=== PATIENT | male | born 1960 | race Caucasian/White ===

== ENCOUNTER 2022-09-22 12:37 | Observation (INO) | payer BC ==
[2022-09-22 14:11] LABS: #Eosinphils 0.5 thou/uL (0.0-0.7); #Lymphocytes 1.1 thou/uL (1.20-3.40); #Monocytes 0.8 thou/uL (0.11-0.59); #Neutrophils 5.2 thou/uL (1.40-6.50); %Basophils 0.5 % (0.0-1.0); %Monocytes 10.2 % (0.0-10.0); %Neutrophils 69.4 % (42.0-75.0); Hemoglobin 17.4 g/dL (14.0-18.0); Mean Corpuscular HGB CONC 33.9 g/dL (32.0-36.0); Mean Corpuscular Hemoglobin 32.5 pg (27.0-31.0); Mean Platelet Volume 8.1 fL (7.4-10.4); Platelet Count 189 10x3/uL (130-400); RBC Distribution Width 12.5 % (11.5-14.5); Red Blood Cell (RBC) Count 5.34 mill/uL (4.70-6.10); White Blood Cell (WBC) Count 7.5 10x3/uL (4.8-10.8)
[2022-09-22 14:27] LABS: ALT (SGPT) 13 U/L (8-55); AST (SGOT) 20 U/L (5-34); Albumin 4.2 g/dL (3.5-5.0); Alkaline Phosphatase 61 U/L (40-110); Anion Gap 13 mmol/L (10-20); BUN (Urea Nitrogen) 18 mg/dL (8.4-25.7); Bilirubin, Total 2.5 mg/dL (0.2-1.2); Calc. Creatinine Clearance 0 mL/min (70-130); Calcium 9.1 mg/dL (7.8-10.44); Carbon Dioxide 22 mmol/L (22-29); Chloride 106 mmol/L (98-107); Estimated GFR 57; Globulin 2.8 g/dL (2.4-3.5); Glucose 97 mg/dL (70-105); Potassium 4.3 mmol/L (3.5-5.1); Sodium 137 mmol/L (136-145)
[2022-09-22] MEDS ORDERED: Ondansetron ODT 4 MG TAB ONE (15:01)
[2022-09-22 15:35] LABS: Bilirubin Negative (Negative); Blood, Urine Negative (Negative); Clarity Clear (Clear); Glucose, Urine (Dipstick) Normal (Negative); Ketone, Urine Negative (Negative); Leukocyte Negative Leu/uL (Negative); Nitrite Negative (Negative); Protein, Urine (Dipstick) 20 mg/dL (Neg-Trace); Specific Gravity, Urine 1.025 (1.002-1.036); Urobilinogen Normal mg/dL (Less than 2)
[2022-09-22] MEDS ORDERED: Ondansetron ODT 4 MG TAB PO PRN (18:40)
[2022-09-22] MEDS ORDERED: Morphine 4 MG/ML VIAL SLOW IVP PRN ×2 (18:43→19:28)
[2022-09-22] MEDS ORDERED: Ketorolac Tromethamine 30 MG/ML VIAL IVP PRN (18:43)
[2022-09-22] MEDS ORDERED: Zolpidem Tartrate 5 MG TAB PO PRN (18:44)
[2022-09-22] MEDS ORDERED: Ketorolac Tromethamine 30 MG/ML VIAL ONE (18:46)
[2022-09-22] MEDS ORDERED: HYDROcodone/Acetaminophen 10/325 mg Tablet PO PRN (19:26)
[2022-09-22] MEDS ORDERED: hydrALAZINE 20 MG/ML VIAL SLOW IVP PRN (19:26)
[2022-09-22] MEDS ORDERED: Ondansetron ORAL SOLN. 4 MG/5 ML UDCUP PO PRN (20:00)
[2022-09-22] MEDS ORDERED: cefTRIAXone\\ROCEPHIN 2 GM in Sodium Chloride 0.9% 100 ML IVPB SCH (20:00)
[2022-09-22] MEDS ORDERED: Ondansetron PF 4 MG/2 ML Vial IVP PRN (20:00)
[2022-09-22 20:07] LABS: PTT 29.7 sec (22.9-36.1); Prothrombin Time 13.4 sec (12.0-14.7)
[2022-09-22] MEDS ORDERED: cefTRIAXone (ROCEPHIN) 2 GM VIAL ONE (20:25)
[2022-09-22] MEDS ORDERED: Ondansetron PF 4 MG/2 ML Vial ONE (20:26)
[2022-09-22] MEDS: Sodium Chloride 0.9% 1,000 ML IV SCH (20:36)
[2022-09-22] MEDS ORDERED: Atorvastatin Calcium 10 MG TAB PO SCH (21:00)
[2022-09-22] MEDS ORDERED: HYDROcodone/Acetaminophen 10/325 mg Tablet ONE (23:32)
[2022-09-22] MEDS: HYDROcodone/Acetaminophen 10/325 mg Tablet PO PRN (23:34)
[2022-09-23] MEDS ORDERED: HYDROcodone/Acetaminophen 10/325 mg Tablet ONE (03:45)
[2022-09-23] MEDS: HYDROcodone/Acetaminophen 10/325 mg Tablet PO PRN (03:50)
[2022-09-23 03:57] VITALS: TEMP 97.8
[2022-09-23] MEDS: Sodium Chloride 0.9% 1,000 ML IV SCH (04:40)
[2022-09-23 07:30] VITALS: BP 113/75
[2022-09-23] MEDS ORDERED: cefTRIAXone (ROCEPHIN) 2 GM VIAL ONE (08:20)
[2022-09-23] MEDS ORDERED: Sodium Chloride 0.9% 100 ML ONE (08:20)
[2022-09-23] MEDS ORDERED: Amlodipine 10 MG TAB PO SCH (09:00)
[2022-09-23] MEDS ORDERED: Tamsulosin HCl 0.4 MG CAP PO SCH (09:00)
[2022-09-23] MEDS ORDERED: fentaNYL 50 mcg/mL 1 mL Vial ONE (09:56)
[2022-09-23] MEDS ORDERED: Iopamidol 45 ML ONE (10:02)
[2022-09-23] MEDS ORDERED: ePHEDrine Sulfate 50 MG/10 ML VIAL ONE (10:18)
[2022-09-23] MEDS ORDERED: Ondansetron PF 4 MG/2 ML Vial ONE (10:18)
[2022-09-23] MEDS ORDERED: Dexamethasone 20 MG/5 ML VIAL ONE (10:18)
== END 2022-09-22 23:00 | disposition home or self-care (01) ==
LOC: SUATTDRO 12:37 → ERS 12:37 → ERHOLD 18:38 → 2NO 09-23 13:20 → ERHOLD 09-23 13:20
PROVIDERS: ADMIT Internal Medicine; ATTEND Internal Medicine
PROC: 0T778DZ Dilation of Left Ureter with Intraluminal Device, Via Natural or Artificial Opening Endoscopic (ICD-10-PCS; principal; 2022-09-22)
DX: N13.2 Hydronephrosis with renal and ureteral calculous obstruction (principal); R19.04 Left lower quadrant abdominal swelling, mass and lump; N40.0 Benign prostatic hyperplasia without lower urinary tract symptoms; N35.912 Unspecified bulbous urethral stricture, male; N17.9 Acute kidney failure, unspecified; I10 Essential (primary) hypertension; K57.30 Diverticulosis of large intestine without perforation or abscess without bleeding; Z79.899 Other long term (current) drug therapy
CPT/HCPCS: 36415; 74176; 74420; 80053; 81003; 85025; 85610; 85730; 96374; C2617; J0696; J1885; J2405; J3490; J7050; Q0162

== ENCOUNTER 2022-09-28 11:15 | Outpatient (CLI) | payer BC ==
[2022-09-28 13:05] LABS: Hemoglobin 16.8 g/dL (13.5-17.5); Mean Corpuscular HGB CONC 35.3 g/dL (32.0-36.0); Mean Corpuscular Hemoglobin 31.6 pg (27.0-33.0); Mean Corpuscular Volume 89.6 fl (81.2-95.1); Mean Platelet Volume 9.9 fl (7.4-10.4); Platelet Count 239 10x3/uL (150-450); RBC Distribution Width 12.9 % (11.5-14.5); Red Blood Cell (RBC) Count 5.31 10x6/uL (4.32-5.72); White Blood Cell (WBC) Count 6.4 10x3/uL (3.5-10.5)
[2022-09-28 13:42] LABS: Anion Gap 17 mmol/L (10-20); BUN (Urea Nitrogen) 16 mg/dL (8.4-25.7); Calc. Creatinine Clearance 0 mL/min (70-130); Calcium 9.5 mg/dL (7.8-10.44); Carbon Dioxide 24 mmol/L (22-29); Chloride 102 mmol/L (98-107); Estimated GFR 57; Glucose 90 mg/dL (70-105); Potassium 4.6 mmol/L (3.5-5.1); Sodium 138 mmol/L (136-145)
[2022-09-28 13:43] LABS: PTT 28.3 sec (22.0-33.0); Prothrombin Time 11.2 sec (9.5-12.1)
== END 2022-09-28 11:16 | disposition home or self-care (01) ==
LOC: LABBT 11:15
PROVIDERS: ATTEND Urology
DX: Z01.812 Encounter for preprocedural laboratory examination (principal); N20.1 Calculus of ureter; N20.0 Calculus of kidney
CPT/HCPCS: 80048; 85027; 85610; 85730; 93005; 93010

== ENCOUNTER 2022-10-05 05:44 | Day surgery (SDC) | payer BC ==
[2022-09-28 12:11] VITALS: BMI 33.3
[2022-10-05] MEDS ORDERED: Sodium Chloride 0.9% 100 ML ONE (06:58)
[2022-10-05] MEDS ORDERED: cefTRIAXone (ROCEPHIN) 2 GM VIAL ONE (06:58)
[2022-10-05] MEDS ORDERED: fentaNYL PF 100 MCG/2 ML SYRINGE ONE (07:07)
[2022-10-05] MEDS ORDERED: Iopamidol 15 ML ONE (07:20)
[2022-10-05] MEDS ORDERED: Rocuronium Bromide 10 MG/ML (10ML VIAL) ONE (07:41)
[2022-10-05] MEDS ORDERED: Lidocaine 1% PF 5 ML VIAL ONE (07:41)
[2022-10-05] MEDS ORDERED: Glycopyrrolate 0.2 MG/ML 5 ML SYRINGE ONE (07:41)
[2022-10-05] MEDS ORDERED: NEOSTIGMINE 3 MG/3 ML SYR 3 MG/3 ML SYRINGE ONE (07:41)
[2022-10-05] MEDS ORDERED: PROPOFOL 200 MG/20 ML VIAL ONE (07:41)
[2022-10-05] MEDS ORDERED: ePHEDrine Sulfate 50 MG/10 ML VIAL ONE (07:41)
[2022-10-05] MEDS ORDERED: Ondansetron PF 4 MG/2 ML Vial ONE (07:41)
[2022-10-05] MEDS ORDERED: Dexamethasone 20 MG/5 ML VIAL ONE (07:41)
[2022-10-05] MEDS ORDERED: Phenazopyridine HCl 100 MG TAB ONE (09:42)
[2022-10-05] MEDS ORDERED: Oxybutynin 5 MG TAB ONE (09:43)
[2022-10-05] MEDS ORDERED: Tamsulosin HCl 0.4 MG CAP ONE (09:45)
== END 2022-10-05 15:35 | disposition home or self-care (01) ==
LOC: SDC 05:44
PROVIDERS: ATTEND Urology
PROC: 0TC48ZZ Extirpation of Matter from Left Kidney Pelvis, Via Natural or Artificial Opening Endoscopic (ICD-10-PCS; principal; 2022-10-05)
PROC: 0T778DZ Dilation of Left Ureter with Intraluminal Device, Via Natural or Artificial Opening Endoscopic (ICD-10-PCS; principal; 2022-10-05)
DX: N20.0 Calculus of kidney (principal); N28.1 Cyst of kidney, acquired; N40.1 Benign prostatic hyperplasia with lower urinary tract symptoms; R35.0 Frequency of micturition; N52.9 Male erectile dysfunction, unspecified; I10 Essential (primary) hypertension; E78.5 Hyperlipidemia, unspecified; Z79.899 Other long term (current) drug therapy
CPT/HCPCS: 74018; 74420; 82365; 88300; C1747; C1769; C2617; J0696; J1100; J2405; J2704; J3490; Q9967

== ENCOUNTER 2022-10-14 10:08 | Outpatient (CLI) | payer BC | END 2022-10-14 10:09 | disposition home or self-care (01) | LOC: RAD 10:08 | PROVIDERS: ATTEND Family Medicine | DX: N20.0 Calculus of kidney (principal); Z96.0 Presence of urogenital implants | CPT/HCPCS: 74018 ==

== ENCOUNTER 2022-10-15 09:16 | Outpatient (CLI) | payer BC ==
[2022-10-15 10:42] LABS: Hemoglobin 15.8 g/dL (13.5-17.5); Mean Corpuscular HGB CONC 34.3 g/dL (32.0-36.0); Mean Corpuscular Hemoglobin 31.3 pg (27.0-33.0); Mean Corpuscular Volume 91.3 fl (81.2-95.1); Platelet Count 241 10x3/uL (150-450); RBC Distribution Width 12.8 % (11.5-14.5); Red Blood Cell (RBC) Count 5.04 10x6/uL (4.32-5.72)
[2022-10-15 11:02] LABS: Anion Gap 14 mmol/L (10-20); BUN (Urea Nitrogen) 18 mg/dL (8.4-25.7); Calc. Creatinine Clearance 0 mL/min (70-130); Calcium 8.9 mg/dL (7.8-10.44); Carbon Dioxide 22 mmol/L (22-29); Chloride 107 mmol/L (98-107); Estimated GFR 52; Glucose 105 mg/dL (70-105); Potassium 4.4 mmol/L (3.5-5.1); Sodium 139 mmol/L (136-145)
[2022-10-15 11:08] LABS: PTT 30.5 sec (22.0-33.0); Prothrombin Time 10.4 sec (9.5-12.1)
== END 2022-10-15 09:17 | disposition home or self-care (01) ==
LOC: LABBT 09:16
PROVIDERS: ATTEND Urology
DX: Z01.818 Encounter for other preprocedural examination (principal); Z12.5 Encounter for screening for malignant neoplasm of prostate; N20.2 Calculus of kidney with calculus of ureter; N40.1 Benign prostatic hyperplasia with lower urinary tract symptoms; N28.1 Cyst of kidney, acquired; N52.9 Male erectile dysfunction, unspecified; I10 Essential (primary) hypertension; R35.0 Frequency of micturition; R33.8 Other retention of urine
CPT/HCPCS: 80048; 85027; 85610; 85730; 93005; 93010

== ENCOUNTER 2022-10-21 06:02 | Day surgery (SDC) | payer BC ==
[2022-10-15 10:12] VITALS: BMI 32.3
[2022-10-21] MEDS ORDERED: Iopamidol 30 ML ONE (06:46)
[2022-10-21] MEDS ORDERED: SUGAMMADEX SODIUM 200 MG/2 ML VIAL ONE (06:51)
[2022-10-21] MEDS ORDERED: Dexmedetomidine 200 MCG/2 ML VIAL ONE (06:51)
[2022-10-21] MEDS ORDERED: Famotidine/PF 20 mg/2ml Vial ONE (06:51)
[2022-10-21] MEDS ORDERED: fentaNYL 50 mcg/mL 1 mL Vial ONE (06:51)
[2022-10-21] MEDS ORDERED: cefTRIAXone (ROCEPHIN) 2 GM VIAL ONE (06:59)
[2022-10-21] MEDS ORDERED: Sodium Chloride 0.9% 100 ML ONE (06:59)
[2022-10-21] MEDS ORDERED: PHENYLEPHRINE-NS 100 MCG/ML 10 ML SYRINGE ONE (07:29)
[2022-10-21] MEDS ORDERED: ePHEDrine Sulfate 50 MG/10 ML VIAL ONE (07:29)
[2022-10-21] MEDS ORDERED: Lidocaine 1% PF 5 ML VIAL ONE (07:29)
[2022-10-21] MEDS ORDERED: PROPOFOL 200 MG/20 ML VIAL ONE (07:29)
[2022-10-21] MEDS ORDERED: Ondansetron PF 4 MG/2 ML Vial ONE (07:29)
[2022-10-21] MEDS ORDERED: Rocuronium Bromide 10 MG/ML (10ML VIAL) ONE (07:29)
[2022-10-21] MEDS ORDERED: Phenazopyridine HCl 100 MG TAB ONE (08:43)
[2022-10-21] MEDS ORDERED: Tamsulosin HCl 0.4 MG CAP ONE (08:43)
== END 2022-10-21 11:06 | disposition home or self-care (01) ==
LOC: SDC 06:02
PROVIDERS: ATTEND Urology
DX: N20.2 Calculus of kidney with calculus of ureter (principal); N40.1 Benign prostatic hyperplasia with lower urinary tract symptoms; R33.8 Other retention of urine; R35.0 Frequency of micturition; N28.1 Cyst of kidney, acquired; N52.9 Male erectile dysfunction, unspecified; I10 Essential (primary) hypertension; E78.5 Hyperlipidemia, unspecified; Z79.899 Other long term (current) drug therapy
CPT/HCPCS: 74018; 74420; C1747; C1769; C2617; J0696; J2405; J2704; J3010; J3490; Q9967; S0028

== ENCOUNTER 2023-01-21 10:29 | Outpatient (CLI) | payer BC | END 2023-01-21 10:30 | disposition home or self-care (01) | LOC: BICULT 10:29 | PROVIDERS: ATTEND Urology | DX: N28.1 Cyst of kidney, acquired (principal); N20.0 Calculus of kidney; Z98.890 Other specified postprocedural states | CPT/HCPCS: 76770 ==